=== PATIENT | male | born 1955 | race Caucasian/White ===

== ENCOUNTER 2019-05-28 15:41 | Emergency (ER) | payer OTHER ==
[2019-05-28] MEDS ORDERED: TETANUS & DIPHTHERIA TOX,ADULT 0.5 ML VIAL ONE (16:16)
--- NOTE | 2019-05-28 16:16 | ER ---
Nurse's Notes [facility] Name: Jarret Mac Age: 64 yrs Sex: Male : 1955 Arrival Date: 05/28/2019 Time: 15:45 Bed 19 Private MD: Rhianna Joseph C Diagnosis: Laceration without foreign body of left index finger without damage to nail Presentation: 05/27 15:51 Chief complaint: Patient states: Cut left hand 2nd digit with dry box operator yesterday at ll1 noon. Still oozes blood, states he initially thought he didn't need stitches. Thinks he might now. Coronavirus screen: Proceed with normal triage. Patient denies a cough. Patient denies shortness of breath or difficulty breathing. Patient denies measured and/or subjective temperature greater than 100.4F prior to today's visit. Patient denies travel on a cruise ship or to a country the [facility] currently lists as an affected area. Patient denies contact with known and/or suspected case of COVID-19. Ebola Screen: Patient denies travel to an Ebola-affected area in the 21 days before illness onset. Complicating Factors: There are no complicating factors for this patient. Initial Sepsis Screen: Does the patient meet any 2 criteria? No. Patient's initial sepsis screen is negative. Risk Assessment: Do you want to hurt yourself or someone else? Patient reports no desire to harm self or others. Onset of symptoms was May 27, 2019. 15:51 Method Of Arrival: Ambulatory ll1 15:51 Acuity: KIMBERLY 4 ll1 16:38 Initial Sepsis Screen: Does the patient have a suspected source of infection? No. Patient's initial sepsis screen is negative. Historical: - Allergies: 15:58 No Known Allergies; ll1 - PMHx: 15:58 High Cholesterol; Hypertension; ll1 - PSHx: 15:58 rotator cuff x 2; ll1 - Immunization history:: Last tetanus immunization: > 10 years ago. - Social history:: Patient uses alcohol, only on a social basis. weekly. Patient/guardian denies using street drugs, tobacco products. Screenin:37 Abuse screen: Denies threats or abuse. Nutritional screening: No deficits noted. Tuberculosis screening: No symptoms or risk factors identified. Fall Risk None identified. Assessment: 15:58 General: Appears in no apparent distress. Pain: Denies pain. Neuro: Level of Consciousness is awake, alert, Oriented to person, place, time, situation. Cardiovascular: Heart tones S1 S2 present Capillary refill < 3 seconds Patient's skin is warm and dry. Respiratory: Airway is patent Respiratory effort is even, unlabored, Respiratory pattern is regular, symmetrical, Breath sounds are clear. GI: No signs and/or symptoms were reported involving the gastrointestinal system. : No signs and/or symptoms were reported regarding the genitourinary system. EENT: No signs and/or symptoms were reported regarding the EENT system. Derm: No signs and/or symptoms reported regarding the dermatologic system. Musculoskeletal: No signs and/or symptoms reported regarding the musculoskeletal system. Injury Description: Laceration sustained to dorsal aspect of middle phalanx of left index finger is 0.5 to 2.5 cm long, not bleeding, was sustained 1 day ago. is bleeding no active bleeding noted. Vital Signs: 15:51 Pulse 66; Resp 17; Temp 98.5; Pulse Ox 96% ; Pain 0/10; ll1 15:59 BP 125 / 87; ll1 ED Course: 15:45 Patient arrived in ED. am2 15:45 Rhianna Joseph MD is Private Physician. am2 15:51 [facility] Palacios [facility]. cp 15:51 Joseph Lazo MD is Attending Physician. cp 15:57 Fernanda Morgan, JUAN MIGUEL is Primary Nurse. 15:57 Triage completed. ll1 15:59 Arm band placed on Patient placed in an exam room, on a stretcher. ll1 16:37 No provider procedures requiring assistance completed. Patient did not have IV access during this emergency room visit. 16:39 Patient has correct armband on for positive identification. Bed in low position. Call light in reach. 16:39 Dressings: non-adherent dressing x 1 dorsal aspect of middle phalanx of left index ah finger Steri strips 1/8 " X 3;. 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 Exp: 03/28/2021. Lot #: [id number]. } Route: IM; Site: right ventrogluteal; 16:35 Follow up: Response: Medication administered at discharge. Outcome: 16:15 Discharge ordered by . elvin 16:38 Discharged to home ambulatory. 16:38 Condition: good 16:38 Discharge instructions given to patient, Instructed on discharge instructions, medication usage, wound care, Demonstrated understanding of instructions, follow-up care, medications, wound care, Prescriptions given X 1. 16:40 Patient left the ED. Signatures: Jean Palacios PA PA cp Moreno, Amanda am2 Fernanda Morgan RN RN [place] Ocasio RN RN ll1
--- NOTE | 2019-05-28 16:16 | EDPHYS ---
Physician Documentation [facility] Name: Jarret Mac Age: 64 yrs Sex: Male : 1955 Arrival Date: 05/28/2019 Time: 15:45 Bed 19 Private MD: Rhianna Joseph C ED Physician Joseph Lazo HPI: 05/27 16:08 This 64 yrs old Male presents to ER via Ambulatory with complaints of cp Laceration. 16:08 The patient has a laceration The injury was accidental, while using spinner box. The cp laceration(s) is(are) located on the dorsal aspect of middle phalanx of left index finger. Onset: The symptoms/episode began/occurred yesterday. Associated signs and symptoms: Pertinent negatives: heavy bleeding, numbness distal to injury, suspected foreign body. Historical: - Allergies: 15:58 No Known Allergies; ll1 - PMHx: 15:58 High Cholesterol; Hypertension; ll1 - PSHx: 15:58 rotator cuff x 2; ll1 - Immunization history:: Last tetanus immunization: > 10 years ago. - Social history:: Patient uses alcohol, only on a social basis. weekly. Patient/guardian denies using street drugs, tobacco products. ROS: 16:09 MS/extremity: Negative for decreased range of motion, paresthesias. cp 16:09 Skin: Positive for laceration(s), of the dorsal aspect of middle phalanx of left index finger. 16:09 All other systems are negative. Exam: 16:10 Constitutional: The patient appears in no acute distress, alert, awake, non-toxic, well cp developed, well nourished. 16:10 Musculoskeletal/extremity: ROM: full active range of motion, in the left index finger, Perfusion: the extremity is normally perfused throughout, Sensation intact. Tendon exam: specific tendon testing normal through active and passive range of motion 16:10 Skin: cellulitis, is not appreciated, injury, laceration(s), the wound is approximately 2.5 cm(s), of the dorsal aspect of middle phalanx of left index finger, that can be described as clean, no foreign body, linear, without bleeding. Vital Signs: 15:51 Pulse 66; Resp 17; Temp 98.5; Pulse Ox 96% ; Pain 0/10; ll1 15:59 BP 125 / 87; ll1 MDM: 15:56 Patient medically screened. cp 16:11 Data reviewed: vital signs, nurses notes, and as a result, I will discharge patient. ED cp course: VSS, due to date of injury occurring yesterday, 05/27/2019, wound will not be sutured. Discussed wound care and to monitor for infection. 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 Exp: ah 03/28/2021. Lot #: [id number]. } Route: IM; Site: right ventrogluteal; 16:35 Follow up: Response: Medication administered at discharge. Disposition: 16:20 Chart complete. cp 05/28 07:17 Co-signature as Attending Physician, Joseph Lazo MD Available for consultation . ps1 Disposition: 05/28/19 16:15 Discharged to Home. Impression: Laceration without foreign body of left index finger without damage to nail. - Condition is Stable. - Discharge Instructions: Laceration Care, Adult. - Prescriptions for Keflex 500 mg Oral Capsule - take 1 capsule by ORAL route every 8 hours for 10 days; 30 capsule. - Medication Reconciliation Form, Thank You Letter, Antibiotic Education, Prescription Opioid Use form. - Follow up: Private Physician; When: 1 - 2 days; Reason: Worsening of condition. - Problem is new. - Symptoms have improved. Signatures: Jean Palacios PA PA cp Joseph Lazo MD MD [facility] Fernanda Morgan, RN RN [place] Ocasio RN RN ll1 Corrections: (The following items were deleted from the chart) 05/27 16:40 16:15 05/28/2019 16:15 Discharged to Home. Impression: Laceration without foreign body ah of left index finger without damage to nail. Condition is Stable. Forms are Medication Reconciliation Form, Thank You Letter, Antibiotic Education, Prescription Opioid Use. Follow up: Private Physician; When: 1 - 2 days; Reason: Worsening of condition. Problem is new. Symptoms have improved. cp
[2019-05-28 16:48] VITALS: TEMP 98.5; O2SAT 96
[2019-05-28 16:50] VITALS: BP 125/87
== END 2019-05-28 16:40 | disposition home or self-care (01) ==
LOC: ER 15:41
DX: S61.211A Laceration without foreign body of left index finger without damage to nail, initial encounter (principal); W26.0XXA Contact with knife, initial encounter; Z23 Encounter for immunization
CPT/HCPCS: 90471; 90714; 99283